=== PATIENT | male | born 1955 | race Caucasian/White ===

== ENCOUNTER 2017-10-07 10:07 | Emergency (ER) | payer MEDICARE, OTHER ==
[~2017-10-07] VITALS: Ht 177.8 cm; Wt 97.4 kg
[~2017-10-07 10:07] MED LIST: HYDR-3535 PO; MELO15TA2 PO; NORC10TA2 PO; TAB-TAB PO; Z.0.WALKERFRONT
[2017-10-07 10:11] VITALS: BP 163/78; PULSE 81; RESP 18; TEMP 97.9; O2SAT 97
[2017-10-07] MEDS ORDERED: PAIN325T PO (10:34)
[2017-10-07] MEDS ORDERED: CHOLPOW65 (10:34)
[2017-10-07] MEDS ORDERED: DEXAMETHASONE SOD PHOS 20 MG/5 ML VIAL IM ONE (10:45)
[2017-10-07] MEDS: RESP: ALBUTEROL 2.5 MG/IPRATROPIUM 0.5 MG NEB (SCH) INH (10:53)
--- NOTE | 2017-10-07 11:13 | PD ---
HPI Chief Complaint: Cold / Flu Symptoms Time Seen by Provider: 10:26 Travel History International Travel<30 days: No Contact w/Intl Traveler<30days: No Traveled to known affect area: No History of Present Illness HPI 62-year-old male to presents to the ED for evaluation of cold-like symptoms for about 3 weeks now. Patient has a history of smoking andCOPD. Per patient she' s had wheezing in the past. Pneumonia as well as. Is concerned about this. She states that for the most part he has sinus congestion and nonproductive cough. He has no allergies to medication. He has not taken anything for this the counter stuff. He has not seen his doctor for this. Denies any recent travel. No sick contacts. No urinary or bowel movement issues. Some fevers initially but not anymore. The patient and main concern is that he continues to have cough and he seems to have chest congestion as well. Has no allergies to medication. No other medical issues at this time. PFSH Past Medical History Arthritis: Yes Asthma: No Blood Disorders: No Heart Rhythm Problems: No Cancer: No Cardiac Catheterization: Yes (A COUPLE OF YEARS AGO) Cardiovascular Problems: No High Cholesterol: Yes Chest Pain: Yes Congestive Heart Failure: No Diabetes: No Endocrine: No Genitourinary: No Hepatitis: No Hiatal Hernia: No Hypertension: No Immune Disorder: No Musculoskeletal: Yes (CHRONIC BACK PAIN) Neurologic: Yes (NEUROPATHY LEGS/ FEET) Psychiatric: Yes (HX PANIC ATTACKS) Reproductive: No Respiratory: Yes (RIGHT EMPYEMA HX) Myocardial Infarction: No Pneumonia: Yes Thyroid Disease: No Tetanus Vaccination: Unknown Influenza Vaccination: Yes Past Surgical History AICD: No Eye Surgery: Yes (MARCELA. CATARACT EXTRACT) Joint Replacement: No Pacemaker: No Thoracic Surgery: Yes (1994 RIGHT THORACOTOMY) Other Surgery: Yes Social History Alcohol Use: Yes (once a month) Tobacco Use: Yes (LESS THAN 1PPD) Substance Use: No Allergies-Medications (Allergen,Severity, Reaction): Coded Allergies: No Known Allergies (Verified , 12/26/15) Reported Meds & Prescriptions Reported Meds & Active Scripts Active Reported Pain Reliever (Acetaminophen) 325 Mg Tab Unknown Dose PO Q4-6H PRN Cholesterol 1 Pow Pow Unknown Dose Review of Systems Except as stated in HPI: all other systems reviewed are Neg Physical Exam Narrative GENERAL: Well-nourished, well-developed patient in no apparent distress. SKIN: Warm and dry. HEAD: Atraumatic. Normocephalic. EYES: Pupils equal and round reactive to light and accommodation. No scleral icterus. No injection or drainage. ENT: No nasal bleeding or discharge. Mucous membranes pink and moist. TMs are clear with no sign of infection or perforation. No mastoid tenderness. Ear canals are intact bilaterally. No lymphadenopathy. Nostril mucosa is red and moist with clear mucus noted. No sinus tenderness to palpation noted. Tonsils are not enlarged or swollen. No ulvua Deviation. Tongue is midline. NECK: Trachea midline. No JVD. No meningeal signs noted CARDIOVASCULAR: Regular rate and rhythm. RESPIRATORY: No accessory muscle use. Wheezings heard in all lung lock. Breath sounds equal bilaterally. GASTROINTESTINAL: Abdomen soft, non-tender, nondistended. Hepatic and splenic margins not palpable. MUSCULOSKELETAL: Extremities without clubbing, cyanosis, or edema. No obvious deformities. NEUROLOGICAL: Awake and alert. No obvious cranial nerve deficits. Motor grossly within normal limits. Five out of 5 muscle strength in the arms and legs. Normal speech. PSYCHIATRIC: Appropriate mood and affect; insight and judgment normal. Data Data Last Documented VS Vital Signs Date Time Temp Pulse Resp B/P (MAP) Pulse Ox O2 Delivery O2 Flow Rate FiO2 10/07/17 10:11 97.9 81 18 163/78 (106) 97 Orders Orders Chest, Single Ap (10/07/17 10:44) Albuterol-Ipratropium Neb (Duoneb Neb) (10/07/17 10:45) Dexamethasone Inj (Decadron Inj) (10/07/17 10:45) [facility] Medical Decision Making Medical Screen Exam Complete: Yes Emergency Medical Condition: Yes Medical Record Reviewed: Yes Interpretation(s) Chest x-ray there for acute disease. Differential Diagnosis COPD versus bronchitis versus pneumonia versus sinusitis Narrative Course 62-year-old male that presents to the ED for evaluation of cold like symptoms. Patient was properly examined and was found to have signs and symptoms very consistent what appears to be likely acute bronchitis. Imaging was ordered. Patient was given breathing treatments and dexamethasone here. She was resistant improved. Chest x-ray was negative for pneumonia. Patient was reassured. At this time this appears to be likely acute bronchitis. Will treat with azithromycin, albuterol, prednisone and Tessalon Perles. Follow closely with PCP. See ED worsening symptoms. Discontinue smoking if possible. Diagnosis Primary Impression: Bronchitis Patient Instructions: General Instructions Additional Instructions: Motrin and Tylenol for pain and fever. You can use [id number] antihistamine as well as well as Mucinex as needed for runny nose and congestion. Cough drops for cough as needed. Drink plenty of fluids. Follow-up with PCP. See ED for worsening symptoms. Med/Other Pt SpecificInfo: Prescription(s) given Disposition: 01 DISCHARGE HOME Condition: Stable Al Gamino Oct 07, 2017 11:13
[2017-10-07] MEDS ORDERED: AZIT250T3 PO (11:15)
[2017-10-07] MEDS ORDERED: PRED20 PO (11:15)
[2017-10-07] MEDS ORDERED: ALBUAER3 INH (11:15)
[2017-10-07 11:26] VITALS: BP 136/72; PULSE 80; RESP 16; O2SAT 96
--- NOTE | 2017-10-07 11:40 | RADRPT ---
EXAM DATE/TIME: 10/07/2017 11:17 [facility] COMPARISON: CHEST SINGLE AP, December 27, 2015, 9:36. INDICATIONS : Cough, congestion, flu like symptoms, wheezing x 3 weeks. MEDICAL HISTORY : Hypercholesterolemia. Renal calculi. Arthritis. Neuropathy legs/feet. Pneumonia. Right empyema. SURGICAL HISTORY : Right thoracotomy. Cardiac cath with stent placement. ENCOUNTER: Initial ACUITY: 1 day PAIN SCORE: 0/10 LOCATION: chest FINDINGS: The lungs are hyperinflated. Diffuse interstitial lung disease is noted. There is no evidence of cons olidating airspace disease mass densities or effusions. Heart and mediastinal structures are stable. CONCLUSION: COPD without evidence of acute airspace disease. Bryant Sibley MD on October 07, 2017 at 11:36 Board Certified Radiologist. This report was verified electronically.
== END 2017-10-07 12:16 | disposition home or self-care (01) ==
LOC: PHEFT 10:07
DX: J40 Bronchitis, not specified as acute or chronic (principal); M19.90 Unspecified osteoarthritis, unspecified site; E78.00 Pure hypercholesterolemia, unspecified; F17.210 Nicotine dependence, cigarettes, uncomplicated
CPT/HCPCS: 71045; 94640; 94664; 96372; 99283; J1100